=== PATIENT | male | born 1995 | race Caucasian/White ===

== ENCOUNTER 2019-06-24 11:13 | Day surgery (SDC) | payer OTHER ==
[~2019-06-24 11:13] MED LIST: CEFAZOLIN SODIUM 2 GM in DEXTROSE 5%-WATER 100 ML IV PRN
[2019-06-24] MEDS ORDERED: FENTANYL CITRATE INJ/PF 100 MCG/2 ML AMPUL ONE (13:13)
[2019-06-24] MEDS ORDERED: MIDAZOLAM 2 MG/2 ML INJ ONE (13:14)
[2019-06-24] MEDS ORDERED: PROPOFOL INJ 200 MG/20 ML VIAL IV ONE (13:14)
[2019-06-24] MEDS ORDERED: BUPIVACAINE HCL 0.5 % INJ/PF 30 ML SDV ONE (13:24)
[2019-06-24] MEDS ORDERED: MEPERIDINE HCL/PF INJ 25 MG/1 ML DISP.SYRIN IV PRN (13:44)
[2019-06-24] MEDS ORDERED: OXYCODONE-ACETAMINOPHEN 5-325 MG TABLET PO PRN ×3 (13:44→14:34)
[2019-06-24] MEDS ORDERED: DIPHENHYDRAMINE HCL 50 MG/ML VIAL IV PRN (13:44)
[2019-06-24] MEDS ORDERED: PROMETHAZINE HCL INJ 25 MG/1 ML VIAL IV PRN (13:44)
[2019-06-24] MEDS ORDERED: FENTANYL CITRATE INJ/PF 100 MCG/2 ML AMPUL IV PRN ×3 (13:44)
[2019-06-24] MEDS ORDERED: MORPHINE SULFATE 10 MG/ML INJ IV PRN (13:44)
[2019-06-24] MEDS ORDERED: ONDANSETRON HCL INJ/PF 4 MG/2 ML SDV IV PRN (14:34)
--- NOTE | 2019-06-24 14:38 | Operative Report ---
Operative Report DATE OF SURGERY: 06/24/19 PREOPERATIVE DIAGNOSIS: Left small finger extra-articular proximal phalanx frac alfa POSTOPERATIVE DIAGNOSIS: Left small finger extra-articular proximal phalanx fracture OPERATION: Closed reduction percutaneous pinning left small finger proximal phalanx fracture SURGEON: HUMA LOPEZ ANESTHESIA: GA COMPLICATIONS: None ESTIMATED BLOOD LOSS: Minimal PROCEDURE: Indication for above procedure: 24-year-old male who was playing football when he inadvertently jammed his finger. At the time of injury patient had notable pain and swelling and subsequently went to the emergency room where x-rays demonstrated a fracture. Closed reduction was attempted unfortunately patient continued to have deformity and malrotation thus decision was made to proceed with operative intervention. Procedure In Detail: Patient was seen and evaluated in the preoperative holding area. The LEFT upper extremity was initialized and marked. Patient received 2g of Ancef IV for bacterial prophylaxis. Patient was taken back to the operative room where transferred to the operative table and placed under general anesthesia. Once they were adequately anesthetized a nonsterile tourniquet was placed on the upper extremity. A surgical team debriefing was performed ensuring all instrumentation was available, the surgical procedure was discussed with possible concerns reviewed. The upper extremity was prepped with chlorhexidine and alcohol and draped in a sterile fashion. A timeout was done identifying correct patient, procedure and extremity everyone in attendance agree with this and verbalized no concerns. The extremity was exsanguinated the tourniquet was inflated to 250 mmHg. Reduction tenaculum was utilized to reapproximate the oblique fracture. C-arm fluoroscopy was obtained confirming near anatomic reduction. A 0.035 K wire was cut in half and placed perpendicular to the fracture site from ulnar distal- dorsal to radial proximal-volar. C-arm fluoroscopy demonstrated acceptable reduction. There is no evidence of malrotation or deformity with tenodesis or direct visualization. An additional 0.035 K wire was then cut in half and 2 additional points of fixation were obtained. A total of two 0.035 K wires were utilized but for K wires placed perpendicular to the fracture. At completion full passive flexion extension was performed there is no evidence of fracture instability. Direct manipulation was performed under C-arm fluoroscopy to confirm adequate stability. Once confirmed K wires were cut below the skin and a Xeroform placed. 10 cc of 0.5% bupivacaine without epinephrine was injected for postoperative pain control. Patient was placed in a dorsal blocking ulnar gutter splint maintaining the intrinsic plus position. Sponge counts, instrument counts, needle counts were correct. Patient was then awoken from anesthesia. Transferred from the operating room table to the operating room stretcher. There was no intraoperative complications patient tolerated procedure well stable to PACU. Postoperative plan: Patient will follow-up the office in 2 weeks at which point we will obtain radiographs. If maintained alignment patient will begin range of motion at that time. We will set the patient up to begin occupational therapy in 2 weeks.
--- NOTE | 2019-06-24 14:39 | Discharge Summary ---
Discharge Summary (SDC) - Discharge Final Diagnosis: Left small finger proximal phalanx fracture Date of Surgery: 06/24/19 Discharge Date: 06/24/19 Condition: Good Treatment or Instructions: Schedule Follow Up w/ Dr. Semaj Baron @ [facility] to be seen in 10-14 days or as scheduled [place]: [place]: [place]: Ice and elevate Keep splint clean/dry/intact, do not remove. If your fingers become numb please unwrap the Santos wrap but leave the splint in place, if the sensation does not return within 30 minutes please return to the emergency department. May begin finger range of motion attempting to make full fist. Please use ibuprofen (Motrin or Advil) 600-800 mg every 8 hours as needed for pain or fever DO NOT TAKE w/ TORADOL may use once TORADOL complete. You may also use acetaminophen (Tylenol) 1000 mg every 4-6 hours as needed for pain or fever. Please be aware that many medications contain acetaminophen, do not exceed a total of 1000 mg of acetaminophen every 6 hours. If ibuprofen and acetaminophen are not sufficient for your pain you may take the Percocet/[place]. Please be aware that the Percocet/[place] does contain Tylenol. Stool softener of choice when on pain medication. USE OF IVGR-ULN-BLMLORH IBUPROFEN: Ibuprofen (Advil, Nuprin, Medipren, Motrin IB) is a medication for fever and pain control. In addition, it has anti- inflammatory effects which may be beneficial, especially in the treatment of injuries. It's best to take ibuprofen with food. Persons with ulcer disease or allergy to aspirin should notify their physician of this before taking ibuprofen. Ibuprofen can be given every four to six hours, for a total of four doses daily. Age Pain or fever dose Antiinflammatory dose 6-8 yr 200 mg (1 tab) 200 mg (1 tab) 9-11 yr 200 mg (1 tab) 200-400 mg (1-2 tab) 11-14 yr 200-400 mg (1-2 tab) 400 mg (2 tab) 15-adult 400 mg (2 tab) 600 mg (3 tab) ORAL NARCOTIC MEDICATION: You have been given a prescription for pain control. This medication is a narcotic. It's best taken with food, as nausea can result if taken on an empty stomach. Don't operate machinery or drive within six hours of taking this medication. Do not combine this medicine with alcohol, or with any medication which can cause sedation (such as cold tablets or sleeping pills) unless you get permission from the physician. Narcotics tend to cause constipation. If possible, drink plenty of fluids and eat a diet high in fiber and fruits. Please be aware that prescription narcotics also have the potential for abuse. People become addicted to these medications because of the general sense of wellbeing that they induce. This feeling along with a significant reduction in tension, anxiety, and aggression provides a stimulating seductive quality to these drugs. Once your pain is under control, we encourage you to discard your unused narcotics. Prescriptions: Oxycodone HCl/Acetaminophen [Percocet 5-325 mg Tablet] 1 tab PO Q6 PRN #25 tab PRN Reason: Discharge Diet: As Tolerated Respiratory Treatments at Home: Deep Breathing/Coughing Discharge Activity: No Lifting Over 10 Pounds, No Lifting/Push/Pulling Report the Following to Your Physician Immediately: Fever over 101 Degrees, Unusual Bleeding, Redness, Swelling, Warmth, Increased Soreness
--- NOTE | 2019-06-24 15:43 | RADIOLOGY REPORT (SQ) ---
EXAM DESCRIPTION: NO CHG FLUORO; FINGER LEFT COMPLETED DATE/TIME: 06/24/2019 3:28 pm REASON FOR STUDY: LEFT 5TH FINGER PERC PINNING ASST WITH FLUORO IN OR COMPARISON: None. FLUOROSCOPY TIME: 54 seconds 7 Images saved to PACS LIMITATIONS: None. PROCEDURE: Left 5th finger pinning. FINDINGS: Images from fluoro document the procedure. IMPRESSION: Left 5th finger pinning. Refer to operative note for further information. COMMENT: PQRS 6045F: Fluoroscopy time of the procedure is documented in the report. TECHNICAL DOCUMENTATION: JOB ID: [id number] [employer]- All Rights Reserved Reading location - IP/workstation name: [email or web address]
--- NOTE | 2019-06-24 15:43 | RADIOLOGY REPORT (SQ) ---
EXAM DESCRIPTION: NO CHG FLUORO; FINGER LEFT COMPLETED DATE/TIME: 06/24/2019 3:28 pm REASON FOR STUDY: LEFT 5TH FINGER PERC PINNING ASST WITH FLUORO IN OR COMPARISON: None. FLUOROSCOPY TIME: 54 seconds 7 Images saved to PACS LIMITATIONS: None. PROCEDURE: Left 5th finger pinning. FINDINGS: Images from fluoro document the procedure. IMPRESSION: Left 5th finger pinning. Refer to operative note for further information. COMMENT: PQRS 6045F: Fluoroscopy time of the procedure is documented in the report. TECHNICAL DOCUMENTATION: JOB ID: [id number] [employer]- All Rights Reserved Reading location - IP/workstation name: [email or web address]
[2019-06-24 19:00] VITALS: BP 123/81
[2019-06-24] MEDS ORDERED: ONDANSETRON HCL INJ/PF 4 MG/2 ML SDV ONE (20:02)
[2019-06-24] MEDS ORDERED: LIDOCAINE 2% INJ-PF (20 MG/ML) 2 ML AMPUL ONE (20:02)
[2019-06-24] MEDS ORDERED: DEXAMETHASONE SOD PHOSPHATE INJ 4 MG/1 ML VIAL ONE (20:02)
[2019-06-24] MEDS ORDERED: GLYCOPYRROLATE 1 MG/5 ML VIAL ONE (20:02)
== END 2019-06-24 16:30 | disposition home or self-care (01) ==
LOC: OROUT 11:13
PROVIDERS: ATTEND Orthopaedic Surgery
DX: S62.617A Displaced fracture of proximal phalanx of left little finger, initial encounter for closed fracture (principal); X58.XXXA Exposure to other specified factors, initial encounter; Y93.61 Activity, american tackle football
CPT/HCPCS: 73140; 26727; C1713; J2250; J3490 ×3; J0690; J1100; J3010; J2405; J7060; J2704; 01820